=== PATIENT | female | born 1940 | race Caucasian/White ===

== ENCOUNTER 2024-10-20 17:20 | Outpatient (CLI) | payer MEDICARE, SELFPAY | END 2024-10-20 17:21 | disposition home or self-care (01) | LOC: NFLDREF 10-23 12:52 | PROVIDERS: PCP Family Medicine; Referring Provider Family Medicine; Visit Provider Family Medicine | DX: R10.9 Unspecified abdominal pain (principal); R82.90 Unspecified abnormal findings in urine | CPT/HCPCS: 87086 ==